=== PATIENT | female | born 1935 ===

== ENCOUNTER 2017-10-21 14:10 | Outpatient (CLI) | payer MEDICARE | END 2017-10-21 14:11 | disposition home or self-care (01) | LOC: BICRAD 14:10 | PROVIDERS: ATTEND Nurse Practitioner Family | DX: M81.0 Age-related osteoporosis without current pathological fracture (principal); M48.54XA Collapsed vertebra, not elsewhere classified, thoracic region, initial encounter for fracture | CPT/HCPCS: 72072 ==